=== PATIENT | male | born 1970 | race African-American/Black ===

== ENCOUNTER 2021-06-22 13:26 | Emergency (ER) | payer OTHER ==
[2021-06-22] MEDS ORDERED: Naproxen 500 MG TAB ONE (15:07)
== END 2021-06-22 15:12 | disposition home or self-care (01) ==
LOC: NAV ERS 13:26
DX: S06.0X0A Concussion without loss of consciousness, initial encounter (principal); S02.2XXA Fracture of nasal bones, initial encounter for closed fracture; S00.11XA Contusion of right eyelid and periocular area, initial encounter; I10 Essential (primary) hypertension; Z79.899 Other long term (current) drug therapy; X58.XXXA Exposure to other specified factors, initial encounter
CPT/HCPCS: 70450; 70486